=== PATIENT | female | born 2005 | race Two or more races ===

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

== ENCOUNTER → 2024-10-29 | Outpatient (CLI) | payer BC ==
[2024-10-29 18:08] LABS: FREE T4 1.14 NG/DL (0.83-1.43)
== END ==
LOC: M PLALAB 14:50
PROVIDERS: ATTEND Nurse Practitioner Family
DX: E06.3 Autoimmune thyroiditis (principal)